=== PATIENT | female | born 1990 | race Caucasian/White ===

== ENCOUNTER 2017-04-28 15:26 | Emergency (ER) | payer SELFPAY ==
[2017-04-28 15:46] VITALS: BP 121/66
== END 2017-04-28 17:18 | disposition home or self-care (01) ==
LOC: ED 15:26
DX: S93.401A Sprain of unspecified ligament of right ankle, initial encounter (principal); M70.51 Other bursitis of knee, right knee; W01.0XXA Fall on same level from slipping, tripping and stumbling without subsequent striking against object, initial encounter; Y93.89 Activity, other specified; Y99.8 Other external cause status; Y92.89 Other specified places as the place of occurrence of the external cause